=== PATIENT | female | born 1955 | race Two or more races ===

== ENCOUNTER 2017-08-29 18:01 | Emergency (ER) | payer MEDICAID ==
[~2017-08-29] VITALS: Ht 157.5 cm; Wt 57.0 kg
[2017-08-29] MEDS ORDERED: KETOROLAC 30MG/ML VIAL IV STA (22:28)
[2017-08-29 23:08] LABS: CHLORIDE 110 mEq/L (98-107)
[2017-08-29 23:10] LABS: HEMATOCRIT. 38.7 % (36.0-48.0); HEMOGLOBIN. 12.8 g/dL (12.0-16.0); MEAN CORPUSCULAR HEMOGLOBIN 32.6 pg (28.0-32.0); MEAN CORPUSCULAR VOLUME 98.4 fL (81.0-99.0); MEAN PLATELET VOLUME 7.9 fl (7.4-10.4); PLATELET 315 x1000/uL (130-400); RED BLOOD CELL COUNT 3.93 mill/uL (4.2-5.4); RED CELL DISTRIBUTION WIDTH 13.6 % (11.6-14.6)
[2017-08-29 23:25] LABS: PLATELET ESTIMATE NORMAL
[2017-08-30] MEDS ORDERED: CYCLOBENZAPRINE 10MG TABLET PO ONE (00:30)
[2017-08-30 00:50] LABS: CLARITY URINE CLOUDY (CLEAR); COLOR URINE YELLOW (YELLOW); KETONES URINE TRACE (NEGATIVE); LEUKOCYTE ESTERASE URINE TRACE (NEGATIVE); NITRITE URINE NEGATIVE (NEGATIVE); OCCULT BLOOD URINE NEGATIVE (NEGATIVE); PH URINE 6.5 (4.5-8.0); PROTEIN URINE NEGATIVE (NEGATIVE); SPECIFIC GRAVITY URINE 1.035 (1.005-1.030)
[2017-08-30] MEDS ORDERED: SODIUM CHLORIDE 0.9% 1,000 ML IV ONE (01:30)
[2017-08-30] MEDS ORDERED: ACETAMINOPHEN WITH CODEINE 300/30MG TABLET PO ONE (04:00)
[2017-08-30 04:07] VITALS: BP 123/73
== END 2017-08-30 06:29 | disposition home or self-care (01) ==
LOC: ER 18:10
DX: N39.0 Urinary tract infection, site not specified (principal); G89.29 Other chronic pain; M54.5 Low back pain; R10.84 Generalized abdominal pain
CPT/HCPCS: 36415; 74176; 80053; 81003; 83690; 85025; 96361; 96374; 99285; J1885; J7030; Z7610

== ENCOUNTER 2019-04-05 18:37 | Emergency (ER) | payer MEDICAID ==
[~2019-04-05] VITALS: Ht 165.1 cm; Wt 72.0 kg
[2019-04-05 21:22] VITALS: BP 118/85
[2019-04-05 22:12] LABS: *BARBITURATES SCREEN URINE NEGATIVE (NEGATIVE); *BENZODIAZEPINES SCREEN URINE PRESUMTIVE POSITIVE (NEGATIVE); *COCAINE SCREEN URINE NEGATIVE (NEGATIVE); CANNABINOID URINE SCREEN NEGATIVE (NEGATIVE); METHADONE URINE SCREEN NEGATIVE (NEGATIVE); OPIATES URINE SCREEN PRESUMTIVE POSITIVE (NEGATIVE); PHENCYCLIDINE URINE SCREEN NEGATIVE (NEGATIVE)
[2019-04-05 22:13] LABS: *AMPHETAMINES SCREEN URINE NEGATIVE (NEGATIVE)
== END 2019-04-05 21:22 | disposition home or self-care (01) ==
LOC: ER 18:37
DX: G47.00 Insomnia, unspecified (principal); J45.909 Unspecified asthma, uncomplicated
CPT/HCPCS: 80305; 99283

== ENCOUNTER 2019-05-27 17:58 | Emergency (ER) | payer MEDICAID ==
[~2019-05-27] VITALS: Ht 167.6 cm; Wt 65.0 kg
[2019-05-27 20:41] VITALS: BP 119/79
== END 2019-05-27 20:42 | disposition home or self-care (01) ==
LOC: ER 17:58
DX: G47.00 Insomnia, unspecified (principal); J45.909 Unspecified asthma, uncomplicated; E11.9 Type 2 diabetes mellitus without complications; R53.1 Weakness
CPT/HCPCS: 99283